=== PATIENT | male | born 1950 | race Caucasian/White ===

== ENCOUNTER 2018-10-25 15:02 | Inpatient (IN) | payer OTHER, MEDICARE, SELFPAY ==
[2018-10-11 09:54] VITALS: BMI 32.5
[2018-10-24] VITALS (16 sets, daily range): BP systolic 134–188; BP diastolic 72–100; PULSE 48–81; RESP 10–20; TEMP 36.1–36.9; O2SAT 97–100; BMI 32.5
--- NOTE | 2018-10-24 06:30 | DI.RAD.S_ITS ---
PROCEDURE: XR KNEE LT 1TO2V INDICATIONS: TOTAL LEFT KNEE TECHNIQUE: 2 view(s) of the knee acquired. COMPARISON: [facility] [place], MR, VISIONAIRE LT KNEE, 09/28/2018, 10:33. [facility] [place], MR, MR KNEE RIGHT WITHOUT CONTRAST, 05/22/2018, 15:00. [facility] [place], CR, XR KNEE ARTHRITIC SERIES RT, 04/19/2018, 14:30. FINDINGS: Bones: Patient is status post knee joint arthroplasty. Hardware components are in expected positions. Visualized bony structures are intact. Soft tissues: Overlying postoperative changes are noted. IMPRESSION: Arthroplasty changes as above. Dictated by: Monalisa Rodriguez M.D. on 10/24/2018 at 12:09 Approved by: Monalisa Rodriguez M.D. on 10/24/2018 at 12:10
[2018-10-24] MEDS: ACETAMINOPHEN 325 MG TABLET 975 MG PO ×3 (08:47→20:32)
[2018-10-24] MEDS: CELECOXIB 200 MG CAPSULE PO (08:48)
[2018-10-24] MEDS: PREGABALIN 75 MG CAPSULE PO (08:48)
[2018-10-24] MEDS: LACTATED RINGERS 1,000 ML 42 ML IV ×2 (08:49→11:00)
--- NOTE | 2018-10-24 09:14 | PM.PREOP ---
Pre-operative Note Interval Note Pre-op Check: Yes History & Physical Reviewed by Physician and Yes Exam Performed Changes: No
--- NOTE | 2018-10-24 09:17 | P.OP_ITS ---
Operative Date/Time/Diagnoses Date of procedure: 10/24/18 Time of procedure: 11:33 Pre-op diagnosis: Left knee osteoarthritis Post-op diagnosis: same Procedure & Clinicians Procedure: Left total knee arthroplasty Same procedure as scheduled: Yes Indications: The patient presents today for total knee arthroplasty after failure of conservative treatment. The nature of the procedure including the risks and benefits, alternatives, postoperative course and expected outcome were discussed and all questions answered. Consent was obtained. Operative site confirmed and marked. Surgeon: Walter Humphreys Salvage Determiner: [place] Frederick Anesthesia Type: Spinal and Local Operative Notes Findings: Severe osteoarthritis with varus alignment. Closure Type: primary Specimen(s): none sent Applied: implant(s) Estimated Blood Loss (mL): 75 Blood products transfused: none Tourniquet time (min): 25 Procedure in detail: The patient was taken to the operative suite and placed under spinal anesthesia. The patient was given prophylactic antibiotics prior to surgery. The patient was also given tranexamic acid, 1 g, just prior to surgery for postoperative hemostasis. The lateral knee was prepped and the joint injected with 20 mL of 1% Lidocaine with epinephrine. The knee was then prepped and draped in usual sterile fashion. The leg was exsanguinated with an Esmarch dressing and the tourniquet raised to 300 torr. A 15 cm anterior incision was made. Next a medial trivector arthrotomy was made. The extensor mechanism was marked to ensure accurate repair. Initial exposing dissection was carried out medially and laterally. The knee was then extended and the patellar thickness was measured and a cut made removing approximately 9 mm of bone with a goal of restoring normal patellar thickness. The patella was then sized and drilled. Some excess lateral bone was excised and the patellofemoral ligament released. The tourniquet was then released. The knee was then flexed and the [employer] Visionaire femoral guide was placed. The anterior pins were placed and the distal rotation holes drilled. The distal cutting guide was placed and the templated distal femoral cut was made. The templating cutting block was then placed and the anterior, posterior and chamfer cuts made. The [employer] Visionaire tibial guide was placed and the alignment checked along the axis of the proximal tibial with a emma. The proximal tibial cut was then made with an oscillating saw. All meniscus and bony debris was then removed. Flexion extension gaps were checked. No specific balancing was required other than routine exposure and removal of osteophytes. The soft tissues were then injected with a combination of 20 mL of half percent Marcaine with epinephrine and 20 mL of Exparel. The trial components were then placed. The knee went into full extension and flexion beyond 120?. There was excellent medial- lateral balance throughout motion. Patellar tracking was excellent. The trial components were removed and size is confirmed for the final implants. The knee was then exsanguinated with an Esmarch dressing and the tourniquet reapplied for cementing. The knee was cleansed with Pulsavac irrigation and dried. The final components were cemented in with high viscosity vacuum mixed bone cement with antibiotics. The knee was held in extension and the patellar clamp until the cement had adequately cured. The knee was then irrigated with dilute Betadine solution. The extensor mechanism was closed with 5 interrupted #1 Vicryl sutures in 90 degrees of flexion. The joint was then injected with a combination of 1 g of tranexamic acid and 20 mL of quarter percent Marcaine with epinephrine. The subcutaneous tissue was closed with 2-0 Vicryl. The skin was closed with jennifer and surgical adhesive. An Aquacell dressing and Van wrap were then applied. Complications: none Condition: stable Disposition: PACU Plan for aftercare: Ramirez
[2018-10-24] MEDS: CEFAZOLIN 2 GM/100 ML FROZ.PIGGY IV ×2 (09:55→17:48)
--- NOTE | 2018-10-24 10:27 | SUR.OPER ---
Supine on padded OR bed. Pillow under head, arms secured on padded armboards <90 degree abduction. Safety belt across torso. Non-operative leg secured with tape over blanket over lower leg. Operative leg secured in DeMayo/Preston positioner. Foam padded brace at thigh of operative leg.
[2018-10-24] MEDS: BUPIVACAINE 0.5% W/ EPI (PF) 20 ML, BUPIVACAINE LIPOSOME 266 MG, SODIUM CHLORIDE 0.9% 8... INJ (10:36)
[2018-10-24] MEDS: BUPIVACAINE 0.5% W/ EPI (PF) 10 ML, TRANEXAMIC ACID 1,000 MG, SODIUM CHLORIDE 0.9% 20 ML INJ (10:37)
[2018-10-24] MEDS: LIDOCAINE 1% W/EPI INJ 20 ML INJ (10:38)
[2018-10-24] MEDS: TRANEXAMIC ACID 1,000 MG VIAL 1000 MG INJ (10:38)
--- NOTE | 2018-10-24 12:02 | SUR.PHASEI ---
Report called to Rhea Mcdaniel
--- NOTE | 2018-10-24 12:21 | SUR.PHASEI ---
Pt transferred to the floor. Report to Rhea Mcwilliams. VS stable. IV saline locked. Drsg cdi. Spinal level t 10. Belongings bag, green bag, black rolling bag, cane and two hearing aids/case in room.
[2018-10-24] MEDS: LACTATED RINGERS 1,000 ML 125 ML IV ×2 (12:45→20:32)
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
[2018-10-24] MEDS: ONDANSETRON 4 MG/2 ML INJ IV (14:08)
--- NOTE | 2018-10-24 14:20 | PC.NURSE ---
Pt c/o abdominal pain which Pt believes is being caused by bladder pressure. Pt incontinent twice but states he had abdominal pain and bladder pressure post op right knee in February. Pt up with P.T. to stand at the bedside and attempt to urinate. He was again incontinent prior to standing up. Pt became nauseated and had a small amount of greenish emesis. Pt was given Zofran and stated his nausea improved after vomitting. Pt now resting in bed with spouse at the bedside.
[2018-10-24] MEDS: OXYCODONE IR 5 MG TABLET PO ×3 (15:47→22:27)
[2018-10-24] MEDS: HYDROMORPHONE 0.5 MG INJ IV ×2 (16:34→17:56)
--- NOTE | 2018-10-24 17:41 | PC.NURSE ---
Student nurse note 10/24/18 Patient post-op total knee. Currently experiencing elevated pain, reporting 7/10 intensity. Applied fresh ice on both sides of knee as well as an ice pack under knee. Patient was also medicated with Dilaudid with primary nurse. No complaints of nausea. Patient c/o itching and states that it is due to hormone medication treatment, gave [employer] lotion to apply and seems to be helping. Patient's bed in low/locked position and call light within reach.
[2018-10-24] MEDS: ASPIRIN EC 81 MG TABLET PO (20:32)
[2018-10-24] MEDS: ATORVASTATIN 10 MG TABLET PO (20:33)
[2018-10-24] MEDS: TEMAZEPAM 15 MG CAPSULE PO (20:37)
[2018-10-25] VITALS (7 sets, daily range): BP systolic 140–179; BP diastolic 84–113; PULSE 74–108; RESP 16–20; TEMP 36.4–37.3; O2SAT 92–100
[2018-10-25] MEDS: HYDROMORPHONE 0.5 MG INJ IV (00:29)
[2018-10-25] MEDS: CEFAZOLIN 2 GM/100 ML FROZ.PIGGY IV (01:01)
[2018-10-25] MEDS: IBUPROFEN 600 MG TABLET PO (02:59)
[2018-10-25] MEDS: OXYCODONE IR 5 MG TABLET PO ×2 (02:59→06:31)
[2018-10-25 05:54] LABS: Hematocrit 33.6 % (41-53); Hemoglobin 11.7 g/dL (13.5-17.5)
[2018-10-25] MEDS: PANTOPRAZOLE 20 MG TABLET PO (06:31)
[2018-10-25] MEDS: OXYCODONE IR 10 MG TABLET PO ×4 (08:40→18:16)
[2018-10-25] MEDS: ACETAMINOPHEN 325 MG TABLET 975 MG PO ×3 (08:41→21:02)
[2018-10-25] MEDS: DOCUSATE 100 MG CAPSULE PO (08:41)
[2018-10-25] MEDS: ASPIRIN EC 81 MG TABLET PO ×2 (08:41→21:03)
--- NOTE | 2018-10-25 09:10 | CM.DANOTE ---
DCP: Case received, EMR reviewed and met with patient. Introduced self and role. DCP template completed with information currently available. Patient is a 67 year old male who admitted to hospital to the care of the hospitalist team. PCP: Dr. Bell. Payer: confirmed: [facility]. Patient came to hospital for procedure, Left Total Knee Arthroplasty. Met with patient in room, alert and oriented, having some pain. Stated that he had his right knee done in February. Patient lives in [place] with his spouse. Patient does have a walker at home, and has been independent as well, does drive. P: DCP to follow, should be working with physical therapy team when able. Plan is for discharge home with outpatient physical therapy. Ondina Banks RN/Park Worker
--- NOTE | 2018-10-25 10:08 | PM.PNPO.1 ---
Subjective Date Patient Seen: 10/25/18 Time Patient Seen: 10:08 Interval history: Hospital day 2, postop day 1 following left total knee arthroplasty by Dr. Humphreys. Patient has been getting oxycodone 5 mg which is not controlling his pain well. Limited activity. He did have trouble voiding during the night and had in-and out catheter. Lab today notes H&H 11.7/33.6. Patient is concerned about bowel movements as he had had constipation from previous surgery. He currently has no cuts a ordered. Exam Vital Signs (past 8 hours): - 10/25/18 03:49 10/25/18 08:00 10/25/18 08:50 Temperature 98.3 F 98.6 F Pulse Rate 74 82 89 Respiratory Rate 16 16 Blood Pressure 179/96 H 141/113 H 161/93 H Pulse Oximetry 100 97 97 Oxygen Delivery Method Room Air Oxygen Flow Rate 0 Narrative Exam Narrative: Alert, oriented in no acute distress resting in bed. Legs. Van wrap and Aquacel dressing to left knee is dry without drainage or inflammation. No calf pain or swelling. Pulses symmetrical. He does have some weakness with firing his quad. Objective Labs Result Diagrams: 10/25/18 05:38 Labs: Laboratory Results - last 24 hr 10/25/18 05:38 Hgb 11.7 L Hct 33.6 L Assessment & Plan Post-op Postoperative Procedures Operation Date: 10/24/18 10:00 Actual Procedures Side Surgeon p Total Knee Arthroplasty Left Walter Humphreys MD Planned: Patient will work with physical therapy today. Will increase oxycodone 10 mg q.3h. Will add senna for bowel movement. Anticipate discharge home tomorrow if he is stable. He has physical therapy scheduled at [facility] in [place]. Quality VTE Deep Vein Thrombosis/Pulmonary Embolism Present on Admission: No
--- NOTE | 2018-10-25 10:40 | PT.IPTN ---
Current Diagnoses Unilateral primary osteoarthritis, left knee (10/24/18) Surgery Performed Operation Date: 10/24/18 10:00 Actual Procedures p Total Knee Arthroplasty(Left) - Walter Humphreys MD Physical Therapy Treatment Note M2 PT-IP Current Condition Start: 10/24/18 15:30 Freq: NEEDED Status: Active Protocol: Document 10/24/18 13:42 (Rec: 10/24/18 16:05 [id number]) Physical Therapy Current Condition Current Condition Evaluation Date 10/24/18 Treatment Diagnosis L TKA; difficulty walking Onset Date 10/24/18 Weight Bearing Status Weight Bearing Status Weight Bear as Tolerated M3 PT-IP Subjective Start: 10/24/18 15:30 Freq: NEEDED Status: Active Protocol: Document 10/25/18 10:40 GGD (Rec: 10/25/18 12:08 GGD [id number]) Subjective Physical Therapy Visit Type Type Treatment Note Visit Start Time 10:05 Visit Stop Time 10:40 Total Visit Minutes 35 Number of FACULTY SUPPORT COORDINATOR Visits 1 Physical Therapy Visit Comments Patient Comments Pt states he will try to get up. Therapy Pain Assessment Pain When Pain Assessed At Rest Pain Present Pain Present Pain Reported Location RIGHT KNEE Intensity 7 Scale Used Numeric (1 - 10) Pain Behaviors Calling Out Crying Holding Area Wincing M4 PT-IP Mobility and Gait Start: 10/24/18 15:30 Freq: NEEDED Status: Active Protocol: Document 10/25/18 10:40 GGD (Rec: 10/25/18 12:08 GGD [id number]) PT-Bed Mobility Assessment Rolling Type of Rolling Log Rolling Roll to Left Level of Assist Minimal Assistance 1 Person Assistance Supine to Sit Supine to Sit Minimal Assistance 1 Person Assistance Bedrails Sit to Supine Sit to Supine Minimal Assistance 1 Person Assistance Bedrails Scooting Scooting to Edge of Bed Standby Assistance Scooting Up and Down in Bed Standby Assistance PT-Transfer Assessment Comments Mobility Comments Pt refuse out of bed mobility due to pain levels. M5 PT-IP Objective Assessments Start: 10/24/18 15:30 Freq: NEEDED Status: Active Protocol: Document 10/24/18 13:42 (Rec: 10/24/18 16:05 [id number]) Orientation Orientation/Cognition Level of Alertness Alert Orientation Name Age Birthday Month Date Year Day of Week Place Situation Language Function Ability No Deficits Noted Safety Awareness Decreased Safety Awareness Gross Range of Motion Lower Extremity ROM Assessment Left Impaired Impairments L Knee flexion 80 deg Strength Lower Extremity Strength Assessment Left Impaired Hip 4 Knee 3+ Ankle 5 Comments Strength Comments RLE WNL Sensation Assessment Sensation Light Touch Impaired Comments Sensation Comments Light touch intact distal to knee. Diminished above the knee. M6 PT-IP Treatment Start: 10/24/18 15:30 Freq: NEEDED Status: Active Protocol: Document 10/25/18 10:40 GGD (Rec: 10/25/18 12:08 GGD [id number]) Physical Therapy Treatment Exercises Exercises Ankle Pumps Quad Sets Heel Slides Seated Knee Flexion/Extension Education Education Provided Safety M7 PT-IP Assessment and Plan Start: 10/24/18 15:30 Freq: NEEDED Status: Active Protocol: Document 10/25/18 10:40 GGD (Rec: 10/25/18 12:08 GGD [id number]) PT Summary Assessment and Plan Summary Assessment Summary Pt activity tolerance limit by pain. He had increase in pain with all mobility. He need min a and mod cues for bed mobility. He refused trial of standing or gait due to c/o pain. Treatment Plan Other Recommendations and Next Treatment Progress ambulation and stair Focus climbing as appropriate. Recommendations To Nursing Amount of Assist Needed 2 Person Assist Discharge Recommendations PT Discharge Recommendations Home with 24/7 Assist SNF Rehab Outpatient PT
[2018-10-25] MEDS: SENNOSIDES 8.6 MG TABLET PO ×2 (13:20→21:03)
--- NOTE | 2018-10-25 14:15 | PT.IPTN ---
Current Diagnoses Unilateral primary osteoarthritis, left knee (10/24/18) Surgery Performed Operation Date: 10/24/18 10:00 Actual Procedures p Total Knee Arthroplasty(Left) - Walter Humphreys MD Physical Therapy Treatment Note M2 PT-IP Current Condition Start: 10/24/18 15:30 Freq: NEEDED Status: Active Protocol: Document 10/24/18 13:42 (Rec: 10/24/18 16:05 [id number]) Physical Therapy Current Condition Current Condition Evaluation Date 10/24/18 Treatment Diagnosis L TKA; difficulty walking Onset Date 10/24/18 Weight Bearing Status Weight Bearing Status Weight Bear as Tolerated M3 PT-IP Subjective Start: 10/24/18 15:30 Freq: NEEDED Status: Active Protocol: Document 10/25/18 14:15 GGD (Rec: 10/25/18 15:54 GGD [id number]) Subjective Physical Therapy Visit Type Type Treatment Note Visit Start Time 13:45 Visit Stop Time 14:15 Total Visit Minutes 30 Number of FABRIC WORKER Visits 2 Physical Therapy Visit Comments Patient Comments Pt states he willing to work with PT. Therapy Pain Assessment Pain When Pain Assessed At Rest Pain Present Pain Present Pain Reported Location RIGHT KNEE Intensity 4 Scale Used Numeric (1 - 10) Pain Behaviors Guarding Wincing M4 PT-IP Mobility and Gait Start: 10/24/18 15:30 Freq: NEEDED Status: Active Protocol: Document 10/25/18 14:15 GGD (Rec: 10/25/18 15:54 GGD [id number]) PT-Bed Mobility Assessment Rolling Type of Rolling Log Rolling Roll to Left Level of Assist Minimal Assistance 1 Person Assistance Supine to Sit Supine to Sit Minimal Assistance 1 Person Assistance Bedrails Sit to Supine Sit to Supine Minimal Assistance 1 Person Assistance Bedrails Scooting Scooting to Edge of Bed Standby Assistance PT-Transfer Assessment Sit to and From Stand Sit to and from Stand Minimal Assistance Use of Upper Extremities Equipment Transfer Assistive Device Gait Belt Front Wheeled Walker Orthotic/Prosthetic Devices or Brace: No Transfers Transfer Destination Bed Transfer Ability Level of Assist Minimal Assistance Comments Mobility Comments Pt stood from high bed. Gait Assessment Gait Gait Assistance Required: Contact Guard Assist Distance (Feet) 4 Able to Maintain Weight Bearing Status Yes During Gait Assistive Devices Assistive Device Front Wheeled Walker Orthotic/Prosthetic Devices or Brace: No Gait Deviations General Gait Pattern Antalgic Decreased Stride Length Decreased Feet Clearance Step-to Gait Factors Limiting Gait Function Factors Limiting Gait Function Decreased Activity Tolerance Limited Range of Motion Pain Poor Balance M5 PT-IP Objective Assessments Start: 10/24/18 15:30 Freq: NEEDED Status: Active Protocol: Document 10/24/18 13:42 (Rec: 10/24/18 16:05 [id number]) Orientation Orientation/Cognition Level of Alertness Alert Orientation Name Age Birthday Month Date Year Day of Week Place Situation Language Function Ability No Deficits Noted Safety Awareness Decreased Safety Awareness Gross Range of Motion Lower Extremity ROM Assessment Left Impaired Impairments L Knee flexion 80 deg Strength Lower Extremity Strength Assessment Left Impaired Hip 4 Knee 3+ Ankle 5 Comments Strength Comments RLE WNL Sensation Assessment Sensation Light Touch Impaired Comments Sensation Comments Light touch intact distal to knee. Diminished above the knee. M6 PT-IP Treatment Start: 10/24/18 15:30 Freq: NEEDED Status: Active Protocol: Document 10/25/18 14:15 GGD (Rec: 10/25/18 15:54 GGD [id number]) Physical Therapy Treatment Exercises Exercises Ankle Pumps Quad Sets Heel Slides Seated Knee Flexion/Extension M7 PT-IP Assessment and Plan Start: 10/24/18 15:30 Freq: NEEDED Status: Active Protocol: Document 10/25/18 14:15 GGD (Rec: 10/25/18 15:54 GGD [id number]) PT Summary Assessment and Plan Summary Assessment Summary Pt improved knee ROM with heel slides with the use of gait belt. He was able to stand from high bed. He did have increase in pain with all mobility. He was able to take a few small steps and was very unsteady. Frequency of Treatment Frequency Of Treatment Twice a Day Treatment Plan Other Recommendations and Next Treatment Progress ambulation and stair Focus climbing as appropriate. Recommendations To Nursing Amount of Assist Needed 2 Person Assist Discharge Recommendations PT Discharge Recommendations Home with 19/06 Assist SNF Rehab Outpatient PT
[2018-10-25] MEDS: hydrOXYzine pamoate 25 MG CAPSULE PO (19:51)
[2018-10-25] MEDS: TEMAZEPAM 15 MG CAPSULE PO (21:03)
[2018-10-25] MEDS: ATORVASTATIN 10 MG TABLET PO (21:03)
[2018-10-26 01:25] VITALS: TEMP 37.3
[2018-10-26] MEDS: OXYCODONE IR 10 MG TABLET PO ×5 (01:25→22:24)
[2018-10-26 06:00] VITALS: BP 166/59; PULSE 100; RESP 18; TEMP 37.6; O2SAT 98
[2018-10-26] MEDS: PANTOPRAZOLE 20 MG TABLET PO (06:06)
[2018-10-26 08:00] VITALS: BP 144/86; PULSE 103; RESP 20; TEMP 37.2; O2SAT 96
--- NOTE | 2018-10-26 09:25 | PT.IPTN ---
Current Diagnoses Unilateral primary osteoarthritis, left knee (10/24/18) Surgery Performed Operation Date: 10/24/18 10:00 Actual Procedures p Total Knee Arthroplasty(Left) - Walter Humphreys MD Physical Therapy Treatment Note M2 PT-IP Current Condition Start: 10/24/18 15:30 Freq: NEEDED Status: Active Protocol: Document 10/24/18 13:42 (Rec: 10/24/18 16:05 [id number]) Physical Therapy Current Condition Current Condition Evaluation Date 10/24/18 Treatment Diagnosis L TKA; difficulty walking Onset Date 10/24/18 Weight Bearing Status Weight Bearing Status Weight Bear as Tolerated M3 PT-IP Subjective Start: 10/24/18 15:30 Freq: NEEDED Status: Active Protocol: Document 10/26/18 09:25 GGD (Rec: 10/26/18 12:30 GGD [id number]) Subjective Physical Therapy Visit Type Type Treatment Note Visit Start Time 09:00 Visit Stop Time 09:25 Total Visit Minutes 25 Number of HEALTH SERVICES DIRECTOR Visits 3 Physical Therapy Visit Comments Patient Comments Pt states he hopes to go home soon. Therapy Pain Assessment Pain When Pain Assessed At Rest Pain Present Pain Present Pain Reported Location RIGHT KNEE Intensity 5 Scale Used Numeric (1 - 10) M4 PT-IP Mobility and Gait Start: 10/24/18 15:30 Freq: NEEDED Status: Active Protocol: Document 10/26/18 09:25 GGD (Rec: 10/26/18 12:30 GGD [id number]) PT-Bed Mobility Assessment Rolling Type of Rolling Log Rolling Roll to Left Level of Assist Standby Assistance Supine to Sit Supine to Sit Contact Guard Assistance 1 Person Assistance Bedrails Scooting Scooting to Edge of Bed Standby Assistance PT-Transfer Assessment Sit to and From Stand Sit to and from Stand Contact Guard Assistance Use of Upper Extremities Equipment Transfer Assistive Device Gait Belt Front Wheeled Walker Orthotic/Prosthetic Devices or Brace: No Transfers Transfer Destination Chair Transfer Ability Level of Assist Minimal Assistance Gait Assessment Gait Gait Assistance Required: Contact Guard Assist Distance (Feet) 15 Able to Maintain Weight Bearing Status Yes During Gait Assistive Devices Assistive Device Gait Belt Front Wheeled Walker Orthotic/Prosthetic Devices or Brace: No Gait Deviations General Gait Pattern Antalgic Decreased Stride Length Decreased Feet Clearance Step-to Gait Factors Limiting Gait Function Factors Limiting Gait Function Decreased Activity Tolerance Limited Range of Motion Pain Poor Balance Comments Gait Comments Pt need mod cues for gait pattern with FWW. M5 PT-IP Objective Assessments Start: 10/24/18 15:30 Freq: NEEDED Status: Active Protocol: Document 10/24/18 13:42 (Rec: 10/24/18 16:05 [id number]) Orientation Orientation/Cognition Level of Alertness Alert Orientation Name Age Birthday Month Date Year Day of Week Place Situation Language Function Ability No Deficits Noted Safety Awareness Decreased Safety Awareness Gross Range of Motion Lower Extremity ROM Assessment Left Impaired Impairments L Knee flexion 80 deg Strength Lower Extremity Strength Assessment Left Impaired Hip 4 Knee 3+ Ankle 5 Comments Strength Comments RLE WNL Sensation Assessment Sensation Light Touch Impaired Comments Sensation Comments Light touch intact distal to knee. Diminished above the knee. M6 PT-IP Treatment Start: 10/24/18 15:30 Freq: NEEDED Status: Active Protocol: Document 10/26/18 09:25 GGD (Rec: 10/26/18 12:30 GGD [id number]) Physical Therapy Treatment Exercises Exercises Ankle Pumps Quad Sets Heel Slides Seated Knee Flexion/Extension Education Education Provided Safety M7 PT-IP Assessment and Plan Start: 10/24/18 15:30 Freq: NEEDED Status: Active Protocol: Document 10/26/18 09:25 GGD (Rec: 10/26/18 12:30 GGD [id number]) PT Summary Assessment and Plan Summary Assessment Summary Pt improving with mobility and need decrease assistance. He did need cues for all activity . He was able to progress gait distance and improved tolerance to left LE weight bearing. He does need to clear stair mobility before safe D/ C home. Frequency of Treatment Frequency Of Treatment Twice a Day Treatment Plan Other Recommendations and Next Treatment Progress ambulation and stair Focus climbing as appropriate. Recommendations To Nursing Amount of Assist Needed 1 Person Assist Discharge Recommendations PT Discharge Recommendations Home with 19/06 Assist Outpatient PT
[2018-10-26] MEDS: ACETAMINOPHEN 325 MG TABLET 975 MG PO ×3 (09:45→22:24)
[2018-10-26] MEDS: ASPIRIN EC 81 MG TABLET PO ×2 (09:45→22:23)
[2018-10-26] MEDS: SENNOSIDES 8.6 MG TABLET PO ×2 (09:45→22:24)
[2018-10-26] MEDS: hydrOXYzine pamoate 25 MG CAPSULE PO ×2 (11:25→22:23)
--- NOTE | 2018-10-26 14:50 | PT.IPTN ---
Current Diagnoses Unilateral primary osteoarthritis, left knee (10/25/18) Presence of unspecified artificial knee joint (10/25/18) Surgery Performed Operation Date: 10/24/18 10:00 Actual Procedures p Total Knee Arthroplasty(Left) - Walter Humphreys MD Physical Therapy Treatment Note M2 PT-IP Current Condition Start: 10/24/18 15:30 Freq: NEEDED Status: Active Protocol: Document 10/24/18 13:42 (Rec: 10/24/18 16:05 [id number]) Physical Therapy Current Condition Current Condition Evaluation Date 10/24/18 Treatment Diagnosis L TKA; difficulty walking Onset Date 10/24/18 Weight Bearing Status Weight Bearing Status Weight Bear as Tolerated M3 PT-IP Subjective Start: 10/24/18 15:30 Freq: NEEDED Status: Active Protocol: Document 10/26/18 09:25 GGD (Rec: 10/26/18 12:30 GGD [id number]) Subjective Physical Therapy Visit Type Type Treatment Note Visit Start Time 09:00 Visit Stop Time 09:25 Total Visit Minutes 25 Number of CHEMICAL PLANT MANAGER Visits 3 Physical Therapy Visit Comments Patient Comments Pt states he hopes to go home soon. Therapy Pain Assessment Pain When Pain Assessed At Rest Pain Present Pain Present Pain Reported Location RIGHT KNEE Intensity 5 Scale Used Numeric (1 - 10) M4 PT-IP Mobility and Gait Start: 10/24/18 15:30 Freq: NEEDED Status: Active Protocol: Document 10/26/18 09:25 GGD (Rec: 10/26/18 12:30 GGD [id number]) PT-Bed Mobility Assessment Rolling Type of Rolling Log Rolling Roll to Left Level of Assist Standby Assistance Supine to Sit Supine to Sit Contact Guard Assistance 1 Person Assistance Bedrails Scooting Scooting to Edge of Bed Standby Assistance PT-Transfer Assessment Sit to and From Stand Sit to and from Stand Contact Guard Assistance Use of Upper Extremities Equipment Transfer Assistive Device Gait Belt Front Wheeled Walker Orthotic/Prosthetic Devices or Brace: No Transfers Transfer Destination Chair Transfer Ability Level of Assist Minimal Assistance Gait Assessment Gait Gait Assistance Required: Contact Guard Assist Distance (Feet) 15 Able to Maintain Weight Bearing Status Yes During Gait Assistive Devices Assistive Device Gait Belt Front Wheeled Walker Orthotic/Prosthetic Devices or Brace: No Gait Deviations General Gait Pattern Antalgic Decreased Stride Length Decreased Feet Clearance Step-to Gait Factors Limiting Gait Function Factors Limiting Gait Function Decreased Activity Tolerance Limited Range of Motion Pain Poor Balance Comments Gait Comments Pt need mod cues for gait pattern with FWW. M5 PT-IP Objective Assessments Start: 10/24/18 15:30 Freq: NEEDED Status: Active Protocol: Document 10/24/18 13:42 (Rec: 10/24/18 16:05 [id number]) Orientation Orientation/Cognition Level of Alertness Alert Orientation Name Age Birthday Month Date Year Day of Week Place Situation Language Function Ability No Deficits Noted Safety Awareness Decreased Safety Awareness Gross Range of Motion Lower Extremity ROM Assessment Left Impaired Impairments L Knee flexion 80 deg Strength Lower Extremity Strength Assessment Left Impaired Hip 4 Knee 3+ Ankle 5 Comments Strength Comments RLE WNL Sensation Assessment Sensation Light Touch Impaired Comments Sensation Comments Light touch intact distal to knee. Diminished above the knee. M6 PT-IP Treatment Start: 10/24/18 15:30 Freq: NEEDED Status: Active Protocol: Document 10/26/18 09:25 GGD (Rec: 10/26/18 12:30 GGD [id number]) Physical Therapy Treatment Exercises Exercises Ankle Pumps Quad Sets Heel Slides Seated Knee Flexion/Extension Education Education Provided Safety M7 PT-IP Assessment and Plan Start: 10/24/18 15:30 Freq: NEEDED Status: Active Protocol: Document 10/26/18 09:25 GGD (Rec: 10/26/18 12:30 GGD [id number]) PT Summary Assessment and Plan Summary Assessment Summary Pt improving with mobility and need decrease assistance. He did need cues for all activity . He was able to progress gait distance and improved tolerance to left LE weight bearing. He does need to clear stair mobility before safe D/ C home. Frequency of Treatment Frequency Of Treatment Twice a Day Treatment Plan Other Recommendations and Next Treatment Progress ambulation and stair Focus climbing as appropriate. Recommendations To Nursing Amount of Assist Needed 1 Person Assist Discharge Recommendations PT Discharge Recommendations Home with 19/06 Assist Outpatient PT
--- NOTE | 2018-10-26 15:14 | PM.PNPO.1 ---
Subjective Date Patient Seen: 10/26/18 Time Patient Seen: 07:14 Interval history: POD #2 status post left total knee arthroplasty with Dr. Humphreys. Patient had difficulty urinating yesterday. He was able to void in the middle of the night and this morning. Patient's pain is well controlled. Patient has not been in the [facility] with physical therapy yet. Exam Vital Signs (past 8 hours): - 10/26/18 08:00 Temperature 99.0 F Pulse Rate 103 H Respiratory Rate 20 Blood Pressure 144/86 H Pulse Oximetry 96 Oxygen Delivery Method Room Air Oxygen Flow Rate 0 Narrative Exam Narrative: Patient lying in bed in no acute distress. He is alert and oriented x3. Dressing on knee is CDI. Van wrap in place. Calves are soft, compressible, nontender bilaterally. Sensation intact to light touch throughout bilateral lower extremities. Pulses are symmetrical. Objective Labs Result Diagrams: 10/25/18 05:38 Assessment & Plan Post-op (1) S/P total knee arthroplasty: Current Visit: Yes Status: Acute Postoperative Procedures Operation Date: 10/24/18 10:00 Actual Procedures Side Surgeon p Total Knee Arthroplasty Left Walter Humphreys MD continue physical therapy. Continue current pain management. Will continue to monitor voiding. Patient could possibly discharge home today if ambulating safely, pain adequately controlled, and voiding without assistance. Quality VTE Deep Vein Thrombosis/Pulmonary Embolism Present on Admission: No
--- NOTE | 2018-10-26 15:29 | PC.NURSE ---
Pts bp up to 100s/103 earlier, he was in pain. Given oxycodone and bp down to 150s/80s. Report just given to sterling JOHNSTON and he will be medicated for pain shortly.
--- NOTE | 2018-10-26 15:33 | CM.DPC ---
Addendum entered by Whit Muniz LPN 10/27/18 14:35: Pt did much better today. Was up with PT. Ortho PA Santino ok'd him for home and he and his left as planned. Original Note: DCP: continued: case received and a d/c to home order this morning was noted. Discussed in Team Rounds. Pt was seeing pt. Rn coordinator noted pt having issues with pain and noted pt does have the comorbidity of cancer. Checked in now. Pt and spouse asleep in the darkened room. VICKIE Jackson confirms he will not be leaving today. Orthopedic team is following. P: remains: home with 's supportive assist when stable for same. (here for elective LTKA). Of note: UR VICKIE Watson confirms admission status changed to INPT: 12/25/17
[2018-10-26] MEDS: MAGNESIUM HYDROXIDE 30 ML UDC PO (15:43)
[2018-10-26 15:50] VITALS: BP 150/81; PULSE 93; RESP 18; TEMP 37.1; O2SAT 93
[2018-10-26] MEDS: OXYCODONE IR 5 MG TABLET PO (19:11)
[2018-10-26] MEDS: TEMAZEPAM 15 MG CAPSULE PO (22:24)
[2018-10-26] MEDS: ATORVASTATIN 10 MG TABLET PO (22:24)
[2018-10-26] MEDS: DOCUSATE 100 MG CAPSULE PO (22:24)
[2018-10-26 22:31] VITALS: BP 115/78; PULSE 92; RESP 18; TEMP 36.8; O2SAT 93
[2018-10-27 00:05] VITALS: BP 144/70; PULSE 83; RESP 19; TEMP 36.8; O2SAT 96
[2018-10-27] MEDS: IBUPROFEN 600 MG TABLET PO ×2 (00:09→08:57)
[2018-10-27 05:50] VITALS: BP 150/87; PULSE 79; RESP 19; TEMP 36.6; O2SAT 100
[2018-10-27] MEDS: PANTOPRAZOLE 20 MG TABLET PO (07:07)
[2018-10-27] MEDS: OXYCODONE IR 5 MG TABLET PO (07:10)
[2018-10-27 08:00] VITALS: BP 144/59; PULSE 96; RESP 18; TEMP 36.4; O2SAT 95
[2018-10-27] MEDS: ACETAMINOPHEN 325 MG TABLET 975 MG PO (08:58)
[2018-10-27] MEDS: SENNOSIDES 8.6 MG TABLET PO (08:59)
[2018-10-27] MEDS: ASPIRIN EC 81 MG TABLET PO (08:59)
--- NOTE | 2018-10-27 10:24 | PM.DS.1 ---
History of Present Illness Date Patient Seen: 10/27/18 Time Patient Seen: 10:24 Chief complaint: [id number] LEFT TOTAL KNEE ARTHROPLASTY *OPB* Narrative: Hospital day 4, postop day 3 following left total knee arthroplasty by Dr. Humphreys. Patient remained stable postoperatively. Has had some pain control issue to but has been improving. Has been having some difficulty with ambulation but gradually improving. He did have some voiding problems off and on with history of prostate cancer and bladder radiation. Patient is desiring to go home at this time. Discharge Providers Date of admission: 10/25/18 15:02 Primary care physician: Trell Bell MD Consults: 10/24/18 12:29 Consult to Discharge Planning Routine Comment: Consult to Physical Therapy Evaluate & Treat Comment: Physician Instructions: postop TKA protocol Consult to Respiratory Therapy Evaluate & Treat Comment: Physician Instructions: Evaluate and treat Discharge provider: Gerardo Bravo PA-C Discharge Date: 10/27/18 Summary Discharge Diagnosis: Status post left total knee arthroplasty. Hospital Course: Patient brought to hospital on 10/24/2018 for above-noted surgery. Remained stable postoperatively. Progressed slowly with ambulation and physical therapy. Ready for discharge to home on postop day 3. Status at Discharge Cognitive/behavioral status at discharge: Alert, responsive in no acute distress. Functional status at discharge: uses cane/walker Overall status at discharge: patient is progressing back to baseline Time Spent with Patient Less than 30 minutes Exam Vital Signs (past 8 hours): - 10/27/18 05:50 10/27/18 08:00 Temperature 97.8 F 97.6 F Pulse Rate 79 96 H Respiratory Rate 19 18 Blood Pressure 150/87 H 144/59 H Pulse Oximetry 100 95 Oxygen Delivery Method Room Air Oxygen Flow Rate 0 Narrative Exam Narrative: Left leg. Aquacel dressing in place without drainage or inflammation. Mild swelling of the knee and lower leg. Calf is soft and nontender. Pulses symmetrical. Patient able fire his quad well. Objective Labs Result Diagrams: 10/25/18 05:38 Discharge Plan Discharge Plan Patient Disposition: Home Discharge comment: DC home this afternoon after PT. He is a [facility] patient had has pain medications at home. Discharge Med Rec/Prescriptions Prescriptions: Continue atorvastatin [Lipitor] 10 MG tablet 10 mg PO BEDTIME Qty: 0 RF: 0 temazepam 15 MG capsule 15 mg PO BEDTIME Qty: 0 RF: 0 omeprazole 20 MG capsule,delayed release(DR/EC) 20 mg PO QDAY Qty: 0 RF: 0 naproxen sodium 220 MG capsule 2 tab PO QAM Qty: 0 RF: 0 venlafaxine [Effexor XR] 75 MG capsule,extended release 24hr 1 tab PO BID Qty: 0 RF: 0 goserelin [Zoladex] 10.8 MG implant 10.8 mg SQ SEE INSTRUCTIONS Qty: 0 RF: 0 calcium citrate-vitamin D3 [Citracal + D Maximum] 1,500 MG/250 IU tablet 1 tab PO BID Qty: 0 RF: 0 hydrocodone-acetaminophen 5-325 mg Tablet 1 - 2 tab PO BEDTIME RF: 0 Changed aspirin 81 mg Tablet,Delayed Release (Dr/Ec) 81 mg PO BID Qty: 0 RF: 0 Follow up/Referrals: Trell Bell MD [Primary Care Provider] - (follow up with your primary care provider ) Walter Humphreys MD [Physician] - (Please follow up in 5-7 days ) Provider Discharge Instructions Activity: Ambulate as tolerated. Range of motion of left knee as much as possible. Cold/Heat Therapy: Ice to left knee as needed. Skin/Wound/Dressing Care Report to your healthcare provider any signs of infection, such as:: chills, fever, night sweats, increased pain, unusual drainage and unusual redness Dressing: Keep Aquacel dressing in place until postop visit. Visit Report/Discharge Packet Instructions: DI for Knee Replacement Stand Alone Forms: Surgery Discharge Discharge Data Primary Care Provider: Trell Bell Attending Provider: Walter Humphreys Admit Date/Time: 10/25/18 15:02 Quality VTE Deep Vein Thrombosis/Pulmonary Embolism Present on Admission: No
--- NOTE | 2018-10-27 11:00 | PT.IPTN ---
Current Diagnoses Unilateral primary osteoarthritis, left knee (10/25/18) Presence of unspecified artificial knee joint (10/25/18) Surgery Performed Operation Date: 10/24/18 10:00 Actual Procedures p Total Knee Arthroplasty(Left) - Walter Humphreys MD Physical Therapy Treatment Note M2 PT-IP Current Condition Start: 10/24/18 15:30 Freq: NEEDED Status: Active Protocol: Document 10/24/18 13:42 (Rec: 10/24/18 16:05 [id number]) Physical Therapy Current Condition Current Condition Evaluation Date 10/24/18 Treatment Diagnosis L TKA; difficulty walking Onset Date 10/24/18 Weight Bearing Status Weight Bearing Status Weight Bear as Tolerated M3 PT-IP Subjective Start: 10/24/18 15:30 Freq: NEEDED Status: Active Protocol: Document 10/27/18 11:00 GGD (Rec: 10/27/18 12:07 GGD [id number]) Subjective Physical Therapy Visit Type Type Treatment Note Visit Start Time 10:30 Visit Stop Time 11:00 Total Visit Minutes 30 Number of MARKETING AREA MANAGER Visits 5 Physical Therapy Visit Comments Patient Comments Pt states he is feeling better . Therapy Pain Assessment Pain When Pain Assessed At Rest Pain Present Pain Present Pain Reported Location RIGHT KNEE Intensity 4 Scale Used Numeric (1 - 10) M4 PT-IP Mobility and Gait Start: 10/24/18 15:30 Freq: NEEDED Status: Active Protocol: Document 10/27/18 11:00 GGD (Rec: 10/27/18 12:07 GGD [id number]) PT-Bed Mobility Assessment Rolling Type of Rolling Log Rolling Roll to Left Level of Assist Standby Assistance Supine to Sit Supine to Sit Standby Assistance 1 Person Assistance Bedrails Scooting Scooting to Edge of Bed Standby Assistance PT-Transfer Assessment Sit to and From Stand Sit to and from Stand Contact Guard Assistance Use of Upper Extremities Equipment Transfer Assistive Device Gait Belt Front Wheeled Walker Orthotic/Prosthetic Devices or Brace: No Transfers Transfer Destination Wheelchair Transfer Ability Level of Assist Minimal Assistance Gait Assessment Gait Gait Assistance Required: Contact Guard Assist Distance (Feet) 40 Able to Maintain Weight Bearing Status Yes During Gait Assistive Devices Assistive Device Gait Belt Front Wheeled Walker Orthotic/Prosthetic Devices or Brace: No Gait Deviations General Gait Pattern Antalgic Decreased Stride Length Decreased Feet Clearance Step-to Gait Factors Limiting Gait Function Factors Limiting Gait Function Decreased Activity Tolerance Limited Range of Motion Pain Poor Balance Stair Climbing Assessment Evaluation Level of Assist On Stairs Standby Assistance Contact Guard Assistance Devices Stair Climbing Assistive Devices Straight Cane Right Railing Technique/Endurance Stair Climbing Direction Ascend and Descend Stair Climbing Technique Step to Step Number of Steps Climbed 3 Query Text: Stair Climbing Set # Repetitions (reps) 1 M5 PT-IP Objective Assessments Start: 10/24/18 15:30 Freq: NEEDED Status: Active Protocol: Document 10/24/18 13:42 (Rec: 10/24/18 16:05 [id number]) Orientation Orientation/Cognition Level of Alertness Alert Orientation Name Age Birthday Month Date Year Day of Week Place Situation Language Function Ability No Deficits Noted Safety Awareness Decreased Safety Awareness Gross Range of Motion Lower Extremity ROM Assessment Left Impaired Impairments L Knee flexion 80 deg Strength Lower Extremity Strength Assessment Left Impaired Hip 4 Knee 3+ Ankle 5 Comments Strength Comments RLE WNL Sensation Assessment Sensation Light Touch Impaired Comments Sensation Comments Light touch intact distal to knee. Diminished above the knee. M6 PT-IP Treatment Start: 10/24/18 15:30 Freq: NEEDED Status: Active Protocol: Document 10/27/18 11:00 GGD (Rec: 10/27/18 12:07 GGD [id number]) Physical Therapy Treatment Exercises Exercises Ankle Pumps Quad Sets Heel Slides Straight Leg Raises Seated Knee Flexion/Extension Education Education Provided Safety M7 PT-IP Assessment and Plan Start: 10/24/18 15:30 Freq: NEEDED Status: Active Protocol: Document 10/27/18 11:00 GGD (Rec: 10/27/18 12:07 GGD [id number]) PT Summary Assessment and Plan Summary Assessment Summary Pt improving with mobility and gait. He was able to progress his gait distance and had improved weight bearing. He was safer and increase stability with stair mobility. He needed less cueing. He is safe for home D/C when medically stable. Goals Bed Mobility Goal Standby Assistance Transfer Goal Standby Assistance Front Wheeled Walker Gait Goal Standby Assistance Front Wheel Walker Gait Distance 150 Other Goals STG: Pt will up/down 3 steps B rails with minAx1. LTG: Pt will up/down 3 steps B rails with SBA. Days to Meet Goals 5 Frequency of Treatment Frequency Of Treatment Twice a Day Treatment Plan Other Recommendations and Next Treatment Progress ambulation and stair Focus climbing as appropriate. Recommendations To Nursing Amount of Assist Needed 1 Person Assist Discharge Recommendations PT Discharge Recommendations Home with 24/ Assist Outpatient PT
[2018-10-27] MEDS: OXYCODONE IR 10 MG TABLET PO (11:15)
== END 2018-10-27 13:00 | disposition home or self-care (01) | DRG 470 ==
LOC: OR 10-26 13:20
PROVIDERS: Admitting Provider Orthopaedic Surgery; PCP Internal Medicine; Visit Provider Orthopaedic Surgery
PROC: 0SRD0JZ Replacement of Left Knee Joint with Synthetic Substitute, Open Approach (ICD-10-PCS; CPT 27447; principal; 2018-10-24 10:00)
DX: M17.12 Unilateral primary osteoarthritis, left knee (principal); G47.30 Sleep apnea, unspecified; Z87.891 Personal history of nicotine dependence; Z96.651 Presence of right artificial knee joint; R39.198 Other difficulties with micturition; Z85.46 Personal history of malignant neoplasm of prostate
CPT/HCPCS: 73560; 85014; 85018; 97110; 97116; 97162; 97530; C1776; C9290; J0690; J1170; J2405; J2704

== ENCOUNTER 2019-01-23 12:14 | Inpatient (IN) | payer MEDICARE, SELFPAY ==
[2018-10-24 12:51] VITALS: BMI 32.5
[2019-01-14 10:37] VITALS: BMI 33.0
[2019-01-23] VITALS (16 sets, daily range): BP systolic 129–169; BP diastolic 68–84; PULSE 59–72; RESP 14–18; TEMP 36.3–37.2; O2SAT 91–100; BMI 33.0
--- NOTE | 2019-01-23 | DI.RAD.S_ITS ---
PROCEDURE: XR KNEE RT 1TO2V INDICATIONS: POST OP TECHNIQUE: 2 view(s) of the knee acquired. COMPARISON: [facility], CR, XR KNEE LT 1TO2V, 10/24/2018, 11:47. FINDINGS: Bones: Patient is status post knee joint arthroplasty. Hardware components are in expected positions. Visualized bony structures are intact. Soft tissues: Overlying postoperative changes are noted. IMPRESSION: Right knee arthroplasty hardware. Dictated by: Felipe Humphries M.D. on 01/23/2019 at 17:23 Approved by: Felipe Humphries M.D. on 01/23/2019 at 17:23
[2019-01-23] MEDS: LACTATED RINGERS 1,000 ML 42 ML IV ×2 (12:48→17:02)
[2019-01-23] MEDS: PREGABALIN 75 MG CAPSULE PO (13:28)
[2019-01-23] MEDS: ACETAMINOPHEN 325 MG TABLET 975 MG PO ×2 (13:29→21:44)
[2019-01-23] MEDS: CELECOXIB 200 MG CAPSULE PO (13:29)
--- NOTE | 2019-01-23 15:21 | PM.PREOP ---
Pre-operative Note Interval Note History & Physical reviewed/Exam performed by Physician: Yes Changes to H&P: No
--- NOTE | 2019-01-23 15:22 | PM.OP.1 ---
Operative Date/Time/Diagnoses Date of procedure: 01/23/19 Time of procedure: 17:28 Pre-op diagnosis: Progressive osteoarthritis after medial compartment arthroplasty right knee Post-op diagnosis: same Procedure & Clinicians Procedure: Revision of medial compartment arthroplasty to total knee arthroplasty right knee Same procedure as scheduled: Yes Indications: The patient presents today for revision to total knee arthroplasty after failure of conservative treatment for progressive osteoarthritis. The nature of the procedure including the risks and benefits, alternatives, postoperative course and expected outcome were discussed and all questions answered. Consent was obtained. Operative site confirmed and marked. Surgeon: Walter Humphreys Hydrometer Calibrator: Bismark Frederick Anesthesia Type: General, Spinal and Local Operative Notes Findings: There was severe osteoarthritis of the patellofemoral and lateral compartment. No obvious loosening of the medial compartment arthroplasty. A standard total knee with just slightly thicker poly was utilized as there was no significant bone loss. Closure Type: primary Specimen(s): other (Previous medial compartment arthroplasty.) Prosthetic devices, grafts, tissues, transplants, or devices: [facility] BCS: 8 femoral component, 8 tibial component, 11 mm BCS polyethylene tray and 35 x 9 mm round patella Applied: catheter and implant(s) Estimated Blood Loss (mL): 100 Blood products transfused: none Tourniquet time (min): 35 Procedure in detail: The patient was taken to the operative suite and placed under spinal and general anesthesia. The patient was given prophylactic antibiotics prior to surgery. The patient was also given tranexamic acid, 1 g, just prior to surgery for postoperative hemostasis. The lateral knee was prepped and the joint injected with 20 mL of 1% Lidocaine with epinephrine. The knee was then prepped and draped in usual sterile fashion. The leg was exsanguinated with an Esmarch dressing and the tourniquet raised to 250 torr. A 15 cm anterior incision was made using the previous incision. Next a medial trivector arthrotomy was made. The extensor mechanism was marked to ensure accurate repair. Initial exposing dissection was carried out medially and laterally. The knee was then extended and the patellar thickness was measured and a cut made removing approximately 9 mm of bone. The patella was then sized and drilled. Some excess lateral bone was excised and the patellofemoral ligament released. The knee was then flexed and the intramedullary femoral guide emma placed. The distal femoral cut was made in 6 ? of valgus at the + 0 position. The previous medial femoral component was easily removed with osteotomes. No evidence of loosening. No significant bone loss. The femoral size was measured and the appropriate cutting block was then placed and the anterior, posterior and chamfer cuts made. The tibial component was then removed with osteotome was. Again there was no significant bone loss. No evidence of loosening. The extra medullary tibial alignment emma was then placed along the anatomic axis of the tibia approximating the normal slope. The guide was set to remove about 1-2 mm from the previous medial resection. This corresponded to about 12 mm from the lateral side. The proximal tibial cut was then made with an oscillating saw. All meniscus and bony debris was then removed. Flexion extension gaps were checked. No specific balancing was required other than routine removal of osteophytes. The soft tissues were then injected with a combination of 20 mL of half percent Marcaine with epinephrine and 20 mL of Exparel. The trial components were then placed. The knee went into full extension and flexion beyond 120?. There was excellent medial- lateral balance throughout motion. Patellar tracking was excellent. The trial components were removed and the knee was cleansed with Pulsavac irrigation and dried. The final components were cemented in with high viscosity vacuum mixed bone cement with antibiotics. The knee was held in extension and the patellar clamp until the cement had fully cured. The knee was irrigated and inspected for any further debris. The knee was then irrigated with dilute Betadine solution. The extensor mechanism was closed with 5 interrupted #1 Vicryl sutures in 90 degrees of flexion. The joint was then injected with a combination of 1 g of tranexamic acid and 20 mL of quarter percent Marcaine with epinephrine. The subcutaneous tissue was closed with 2-0 Vicryl. The skin was closed with jennifer and surgical adhesive. An Aquacell dressing and Van wrap were then applied. The patient tolerated the procedure well and was returned to recovery room in good condition. Complications: none Condition: stable Disposition: PACU Plan for aftercare: [facility] protocol for total knee arthroplasty.
[2019-01-23] MEDS: CEFAZOLIN 2 GM/100 ML FROZ.PIGGY IV ×2 (15:30→23:54)
[2019-01-23] MEDS: LIDOCAINE 1% W/EPI INJ 20 ML INJ (16:11)
[2019-01-23] MEDS: POVIDONE-IODINE 15 ML, SODIUM CHLORIDE 0.9% 250 ML TOP (16:12)
[2019-01-23] MEDS: BUPIVACAINE 0.5% W/ EPI (PF) 20 ML, BUPIVACAINE LIPOSOME 266 MG, SODIUM CHLORIDE 0.9% 8... INJ (16:13)
[2019-01-23] MEDS: BUPIVACAINE 0.5% W/ EPI (PF) 10 ML, TRANEXAMIC ACID 1,000 MG, SODIUM CHLORIDE 0.9% 20 ML INJ (16:14)
[2019-01-23] MEDS: LORazepam 2 MG/ML SYRINGE 1 MG IV (17:50)
[2019-01-23] MEDS: HYDROMORPHONE 2 MG INJ 1 MG IV ×2 (17:58→18:00)
[2019-01-23] MEDS: LACTATED RINGERS 1,000 ML 125 ML IV (18:46)
[2019-01-23] MEDS: OXYCODONE IR 5 MG TABLET PO (19:10)
[2019-01-23] MEDS: ASPIRIN EC 81 MG TABLET PO (21:45)
[2019-01-23] MEDS: VENLAFAXINE ER 75 MG CAP PO (21:45)
[2019-01-23] MEDS: ATORVASTATIN 10 MG TABLET PO (21:45)
[2019-01-23] MEDS: TEMAZEPAM 15 MG CAPSULE PO (21:51)
[2019-01-23] MEDS: HYDROMORPHONE 0.5 MG INJ IV (21:52)
--- NOTE | 2019-01-23 23:15 | PC.NURSE ---
Pt is post op. A&OX3. 95%RA. cont pulse ox. denied nausea, pt tolerating PO fluids. R.knee dressing cdi. pp++. hillman patent. IVF infusing. pt rated his pain 7/10, medicated with oxycodone and dilaudid IV.
[2019-01-24] VITALS (8 sets, daily range): BP systolic 134–180; BP diastolic 75–90; PULSE 63–74; RESP 16–20; TEMP 36.2–37.1; O2SAT 95–100
[2019-01-24] MEDS: HYDROMORPHONE 2 MG TABLET PO ×7 (00:49→23:17)
[2019-01-24] MEDS: HYDROMORPHONE 0.5 MG INJ IV ×2 (01:25→04:42)
[2019-01-24 05:27] LABS: Hematocrit 32.4 % (41-53); Hemoglobin 11.2 g/dL (13.5-17.5)
--- NOTE | 2019-01-24 06:49 | PC.NURSE ---
Pt is A and O x 4, VSS. He rates his pain 6/10. Denies N/V/D, LS clear, S1, S2. Pt prefers 0.5 mg IVP dilaudid, po meds tried first. UO is qs clear yellow. +BT. Pt is requesting bowel meds, last BM yesterday before surgery.
--- NOTE | 2019-01-24 07:10 | PM.PNPO.1 ---
Subjective Date Patient Seen: 01/24/19 Interval history: Patient seen bedside s/p R. TKA POD #1. Patient is doing well, his pain is relatively controlled with medication, hillman in place. Denies nausea/vomiting, chest pain, or shortness of breath. Exam Vital Signs (past 8 hours): - 01/24/19 00:00 01/24/19 05:00 Temperature 98.1 F 97.2 F L Pulse Rate 69 64 Respiratory Rate 20 16 Blood Pressure 134/75 146/81 H Pulse Oximetry 96 100 Oxygen Delivery Method Room Air,CPAP Oxygen Flow Rate 2 Narrative Exam Narrative: WDWN NAD A&Ox3. Dressing is CDI, minimal erythema and generalized swelling around the joint. Calf is soft and compressible. Full ROM of foot and ankle. Objective Labs Result Diagrams: 01/24/19 04:41 Labs: Laboratory Results - last 24 hr 01/24/19 04:41 Hgb 11.2 L Hct 32.4 L Assessment & Plan Post-op Postoperative Procedures Operation Date: 01/23/19 14:30 Actual Procedures Side Surgeon p Revision of partial knee to total knee replacement Right Walter Humphreys MD 1. POD #1 s/p above procedure-doing well, PT, pain control. Possible d/c home tomorrow if ambulating well and urinating. D/c hillman.
[2019-01-24] MEDS: PANTOPRAZOLE 20 MG TABLET PO (07:38)
[2019-01-24] MEDS: CEFAZOLIN 2 GM/100 ML FROZ.PIGGY IV (07:40)
[2019-01-24] MEDS: VENLAFAXINE ER 75 MG CAP PO ×2 (08:35→20:15)
[2019-01-24] MEDS: ASPIRIN EC 81 MG TABLET PO ×2 (08:35→20:15)
[2019-01-24] MEDS: DOCUSATE 100 MG CAPSULE PO ×2 (08:35→20:15)
[2019-01-24] MEDS: ACETAMINOPHEN 325 MG TABLET 975 MG PO ×3 (08:35→20:15)
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
--- NOTE | 2019-01-24 12:47 | PC.NURSE ---
day shift note pt a/o x3, resting comfortably in bed and chair throughout day. medicated PRN for pain with PO diluadid with effect. ice pack on L knee in place. no c/o n/v/d. hillman d/c at 1000, pt has not urinated since. will continue to monitor status. saline locked. worked with PT today, able to ambulate with 1PA with FWW.
--- NOTE | 2019-01-24 15:16 | PT.IPTN ---
Current Diagnoses Unilateral primary osteoarthritis, left knee (01/23/19) Presence of unspecified artificial knee joint (01/23/19) Surgery Performed Operation Date: 01/23/19 14:30 Actual Procedures p Revision of partial knee to total knee replacement(Right) - Walter Humphreys MD Physical Therapy Treatment Note M2 PT-IP Current Condition Start: 01/24/19 11:53 Freq: NEEDED Status: Active Protocol: Document 01/24/19 09:50 HH (Rec: 01/24/19 12:16 [email or web address]) Physical Therapy Current Condition Current Condition Evaluation Date 01/24/19 Treatment Diagnosis Revision of medial compartment arthroplasty (R knee), impaired gait Onset Date 01/23/19 Weight Bearing Status Weight Bearing Status Weight Bear as Tolerated M3 PT-IP Subjective Start: 01/24/19 11:53 Freq: NEEDED Status: Active Protocol: Document 01/24/19 14:52 SA (Rec: 01/24/19 15:16 SA [email or web address]) Subjective Physical Therapy Visit Type Type Treatment Note Visit Start Time 14:05 Visit Stop Time 14:35 Total Visit Minutes 30 Notes Pt just had pain meds, agreeable to PT. Number of QUENCHER OPERATOR Visits 1 Physical Therapy Visit Comments Patient Comments Feeling better this afternoon, knee pain is about a 5/10. Patient Goals To return home with his and participate outpatient PT Therapy Pain Assessment Pain When Pain Assessed During Mobility Pain Present Pain Present Pain Reported Location RIGHT KNEE Intensity 5 Scale Used Numeric (1 - 10) Description Acute Pain Management Techniques Apply Cold Re-positioning Timing of Activity with Medications M4 PT-IP Mobility and Gait Start: 01/24/19 11:53 Freq: NEEDED Status: Active Protocol: Document 01/24/19 14:52 SA (Rec: 01/24/19 15:16 SA [email or web address]) PT-Bed Mobility Assessment Rolling Type of Rolling Roll to Left Level of Assist Standby Assistance Supine to Sit Supine to Sit Standby Assistance Bedrails Sit to Supine Sit to Supine Standby Assistance Scooting Scooting to Edge of Bed Standby Assistance Scooting Up and Down in Bed Standby Assistance PT-Transfer Assessment Sit to and From Stand Sit to and from Stand Standby Assistance Use of Upper Extremities Equipment Transfer Assistive Device Gait Belt Front Wheeled Walker Orthotic/Prosthetic Devices or Brace: No Transfers Transfer Destination Bed Transfer Technique Stand Step Pivot Transfer Ability Level of Assist Contact Guard Assistance Comments Mobility Comments BP 155/77 at start of treatment. PT SBA-CGA with all mobilities, able to clear LLE over EOB during sit to supine with use of gait belt as leg casino cage cashier. CGA with stand pivot txs and FWW, no c/o dizziness. Gait Assessment Gait Gait Assistance Required: Contact Guard Assist Distance (Feet) 140 Able to Maintain Weight Bearing Status Yes During Gait Assistive Devices Assistive Device Gait Belt Front Wheeled Walker Orthotic/Prosthetic Devices or Brace: No Gait Deviations General Gait Pattern Antalgic Decreased Stride Length Decreased Feet Clearance Factors Limiting Gait Function Factors Limiting Gait Function Decreased Activity Tolerance Decreased Strength Limited Range of Motion Pain Comments Gait Comments Gait training in room and cruz with fWW and CGA for 140 feet with step through gait pattern and cues for upright posture and decreasing WBing through UEs. Steady with safe use of FWW, no LOB. Stair Climbing Assessment Comments Stair Climbing Comments Pt wants to attempt tomorrow. PT-Balance Assessment Sitting Balance and Reactions Static Sitting Balance Ability Normal Dynamic Sitting Balance Ability Normal M5 PT-IP Objective Assessments Start: 01/24/19 11:53 Freq: NEEDED Status: Active Protocol: Document 01/24/19 09:50 HH (Rec: 01/24/19 12:16 [email or web address]) Orientation Orientation/Cognition Level of Alertness Alert Orientation Name Age Birthday Month Date Year Day of Week Place Situation Language Function Ability No Deficits Noted Safety Awareness Understands Safety Issues Memory Description No Deficits Noted Gross Range of Motion Upper Extremity ROM Assessment Within Functional Limits Lower Extremity ROM Assessment Right Impaired Impairments R knee AROM 5 degrees to 85 degrees Strength Upper Extremity Strength Assessment Within Functional Limits Lower Extremity Strength Assessment Right Impaired Knee 3+/5 grossly Coordination Assessment Gross Coordination Gross Coordination WNL Sensation Assessment Sensation Gross Sensation Right LE Impaired Light Touch Impaired Proprioception (Position) Impaired Sensation Description Pain M6 PT-IP Treatment Start: 01/24/19 11:53 Freq: NEEDED Status: Active Protocol: Document 01/24/19 14:52 SA (Rec: 01/24/19 15:16 SA [email or web address]) Physical Therapy Treatment Exercises Exercises Ankle Pumps Gluteal Sets Quad Sets Heel Slides Straight Leg Raises Short Arc Quads Education Education Provided Post-Op Packet Safety M7 PT-IP Assessment and Plan Start: 01/24/19 11:53 Freq: NEEDED Status: Active Protocol: Document 01/24/19 14:52 (Rec: 01/24/19 15:16 [email or web address]) PT Summary Assessment and Plan Potential Rehabilitation Potential Excellent Status of Condition at Evaluation Stable Summary Impairments Pain ROM Strength Balance Bed Mobility Transfers Gait Activity Tolerance Assessment Summary Pt with improving gait and mobility this afternoon, feels this knee surgery has been less painful than R knee and that he is progressing faster. Pt has 2 stairs to enter home and is willing to try stairs tomorrow. Frequency of Treatment Frequency Of Treatment Twice a Day Treatment Plan Physical Therapy Treatment Plan Bed Mobility Training Transfer Training Gait Training Therapeutic Exercise Balance Retraining Post Op Education Discharge Planning Hot or Cold Pack Recommendations To Nursing Amount of Assist Needed 1 Person Assist Discharge Recommendations PT Discharge Recommendations Home with Assistance Outpatient PT [id number]
[2019-01-24] MEDS: SODIUM CHLORIDE 0.9% FLUSH 10 ML IV (20:15)
[2019-01-24] MEDS: ATORVASTATIN 10 MG TABLET PO (20:15)
[2019-01-24] MEDS: TEMAZEPAM 15 MG CAPSULE PO (20:17)
--- NOTE | 2019-01-24 22:20 | PC.NURSE ---
Evening shift note: Patient alert and oriented and able to make needs known. pt reports that he feels good and that he is recovering more quickly than last time (L knee replacement in the past few months). Pt hopes to go home tomorrow. Pt. is voiding regularly and tolerating food and fluid well, denies any nausea. Face appears a little reddened, discussed with patient the possibility of antibiotics causing the redness, pt denied any discomfort. Patient reported pain level of 6, administered medication as per JAN. Reinforced call light use. Call light in reach.
[2019-01-25 00:29] VITALS: BP 136/76; PULSE 70; RESP 18; TEMP 37.1; O2SAT 98
[2019-01-25] MEDS: OXYCODONE IR 5 MG TABLET PO ×3 (02:40→08:51)
[2019-01-25 04:10] VITALS: BP 166/84; PULSE 70; RESP 18; TEMP 36.6; O2SAT 99
[2019-01-25] MEDS: PANTOPRAZOLE 20 MG TABLET PO (06:04)
[2019-01-25 07:00] VITALS: BP 190/82; PULSE 84; RESP 20; TEMP 37; O2SAT 99
[2019-01-25] MEDS: ACETAMINOPHEN 325 MG TABLET 975 MG PO (08:04)
--- NOTE | 2019-01-25 08:15 | PC.NURSE ---
Addendum entered by Tee Moss R.N. 01/25/19 10:24: PUJA De Los Santos notified of bp this am, and pain 6/10. order added for vistaril. patient states he has pre-filled order for vistaril at home. bp improved after ambulating stairs and clearing physical therapy. patient eager to dc home. arrived promptly and patient left by wc with all belongings and paperwork. Patient states he already has an appt with his pcp and will discuss his HTN at f/u appt. Original Note: Patient rates pain 5/10. Appears uncomfortable. Cheeks flushed. BP elevated 190/82, HR stable 84. Reviewed previous VS, looks like he has been hypertensive. Noted that he is not on anti-hypertensives at home. Does have hx of anxiety and appears to have pain. Will review with PA this am.
[2019-01-25] MEDS: SODIUM CHLORIDE 0.9% FLUSH 10 ML IV (08:51)
[2019-01-25] MEDS: ASPIRIN EC 81 MG TABLET PO (08:52)
[2019-01-25] MEDS: VENLAFAXINE ER 75 MG CAP PO (08:52)
[2019-01-25] MEDS: DOCUSATE 100 MG CAPSULE PO (08:52)
--- NOTE | 2019-01-25 09:16 | PM.DS.1 ---
History of Present Illness Date Patient Seen: 01/25/19 Chief complaint: Revision of partial knee [id number] Narrative: Patient seen bedside status post right revision of unicompartmental knee arthroplasty to total knee arthroplasty on 01/23/[address] Humphreys. Patient is doing well, he is in a little bit amount of pain but he states that he is able to tolerate with oxycodone. He was unable to tolerate hydromorphone. He worked with physical therapy yesterday but still has not done stairs. He would like to go home today. Discharge Providers Date of admission: 01/23/19 12:14 Discharge Date: 01/25/19 Primary care physician: Trell Bell MD Consults: 01/23/19 18:32 Consult to Discharge Planning Routine Comment: Consult to Physical Therapy Evaluate & Treat Comment: Physician Instructions: postop TKA protocol Consult to Respiratory Therapy Evaluate & Treat Comment: Physician Instructions: Evaluate and treat Discharge provider: Tania De Los Santos PA-C Summary Discharge Diagnosis: 1. Right knee osteoarthritis 2. History of right partial knee replacement Hospital Course: Patient was admitted to the hospital status post right revision of unicompartmental knee arthroplasty to total knee arthroplasty on 01/23/[address] Humphreys. Patient tolerated the procedure well with no major complications. Patient was placed on a standard joint replacement pathway and protocol. Patient is seen by Physical therapy and recommended for discharge home. Patient was stable and ready for discharge on 01/25/2019. Status at Discharge Cognitive/behavioral status at discharge: Alert oriented x3 Functional status at discharge: uses cane/walker Overall status at discharge: patient is progressing back to baseline Time Spent with Patient Less than 30 minutes Exam Vital Signs (past 8 hours): - 01/25/19 04:10 01/25/19 07:00 Temperature 97.8 F 98.6 F Pulse Rate 70 84 Respiratory Rate 18 20 Blood Pressure 166/84 H 190/82 H Pulse Oximetry 99 99 Fraction of Inspired Oxygen 21 Oxygen Delivery Method Room Air Oxygen Flow Rate 0 Narrative Exam Narrative: Well-developed well-nourished no acute distress, alert and oriented x3. Dressing on right knee is clean dry and intact. Minimal erythema and generalized swelling around the surgical site. Calf is soft and compressible. Patient is neurovascularly intact in this extremity. Full range of motion of the foot and ankle Objective Labs Result Diagrams: 01/24/19 04:41 Discharge Plan Discharge Plan Patient Disposition: Home Discharge comment: d/c after cleared by PT Discharge Med Rec/Prescriptions Prescriptions: New docusate sodium 100 mg Capsule 100 mg PO BID Qty: 0 RF: 0 oxycodone 5 mg Tablet 5 mg PO Q4H PRN (Reason: Pain, Moderate (4-6)) Qty: 0 RF: 0 Continued atorvastatin [Lipitor] 10 MG tablet 10 mg PO BEDTIME Qty: 0 RF: 0 temazepam 15 MG capsule 15 mg PO BEDTIME Qty: 0 RF: 0 omeprazole 20 MG capsule,delayed release(DR/EC) 20 mg PO QDAY Qty: 0 RF: 0 naproxen sodium 220 MG capsule 2 tab PO QAM Qty: 0 RF: 0 venlafaxine [Effexor XR] 75 MG capsule,extended release 24hr 1 tab PO BID Qty: 0 RF: 0 Zoladex 10.8 MG implant 10.8 mg SQ SEE INSTRUCTIONS Qty: 0 RF: 0 calcium citrate-vitamin D3 [Citracal + D Maximum] 1,500 MG/250 IU tablet 2 tab PO BID Qty: 0 RF: 0 aspirin 81 mg Tablet,Delayed Release (Dr/Ec) 81 mg PO BID Qty: 0 RF: 0 Follow up/Referrals: Walter Humphreys MD [Physician] - (Follow up with the office at your previously scheduled post-op appointment in 5-7 days.) Provider Discharge Instructions Diet: Diet as Tolerated Activity: Weightbearing as tolerated, use walker until cleared by PT Cold/Heat Therapy: Apply ice 20 minutes at a time at least hourly while awake. Skin/Wound/Dressing Care Report to your healthcare provider any signs of infection, such as:: chills, fever, night sweats, increased pain, unusual drainage and unusual redness Dressing: Keep dressing clean, dry, and intact. May shower with it in place but no soaking. Visit Report/Discharge Packet Instructions: DI for Knee Replacement, Oxycodone Stand Alone Forms: Surgery Discharge Discharge Data Primary Care Provider: Trell Bell Attending Provider: Walter Humphreys Admit Date/Time: 01/23/19 12:14 Quality VTE Deep Vein Thrombosis/Pulmonary Embolism Present on Admission: No
--- NOTE | 2019-01-25 09:25 | PT.IPTN ---
Current Diagnoses Unilateral primary osteoarthritis, left knee (01/23/19) Presence of unspecified artificial knee joint (01/23/19) Surgery Performed Operation Date: 01/23/19 14:30 Actual Procedures p Revision of partial knee to total knee replacement(Right) - Walter Humphreys MD Physical Therapy Treatment Note M2 PT-IP Current Condition Start: 01/24/19 11:53 Freq: NEEDED Status: Discharge Protocol: Document 01/24/19 09:50 HH (Rec: 01/24/19 12:16 HH [email or web address]) Physical Therapy Current Condition Current Condition Evaluation Date 01/24/19 Treatment Diagnosis Revision of medial compartment arthroplasty (R knee), impaired gait Onset Date 01/23/19 Weight Bearing Status Weight Bearing Status Weight Bear as Tolerated M3 PT-IP Subjective Start: 01/24/19 11:53 Freq: NEEDED Status: Discharge Protocol: Document 01/25/19 09:25 GGD (Rec: 01/25/19 11:54 GGD [id number]) Subjective Physical Therapy Visit Type Type Treatment Note Visit Start Time 09:00 Visit Stop Time 09:25 Total Visit Minutes 25 Number of BOOK REVIEWER Visits 2 Physical Therapy Visit Comments Patient Comments Pt states he hopes to go home today. Therapy Pain Assessment Pain When Pain Assessed During Mobility Pain Present Pain Present Pain Reported Location RIGHT KNEE Intensity 4 Scale Used Numeric (1 - 10) M4 PT-IP Mobility and Gait Start: 01/24/19 11:53 Freq: NEEDED Status: Discharge Protocol: Document 01/25/19 09:25 GGD (Rec: 01/25/19 11:54 GGD [id number]) PT-Bed Mobility Assessment Supine to Sit Supine to Sit Standby Assistance Scooting Scooting to Edge of Bed Standby Assistance PT-Transfer Assessment Sit to and From Stand Sit to and from Stand Standby Assistance Use of Upper Extremities Equipment Transfer Assistive Device Gait Belt Front Wheeled Walker Orthotic/Prosthetic Devices or Brace: No Transfers Transfer Destination Chair Transfer Ability Level of Assist Contact Guard Assistance Gait Assessment Gait Gait Assistance Required: Contact Guard Assist Distance (Feet) 110 Able to Maintain Weight Bearing Status Yes During Gait Assistive Devices Assistive Device Gait Belt Front Wheeled Walker Orthotic/Prosthetic Devices or Brace: No Gait Deviations General Gait Pattern Antalgic Decreased Stride Length Decreased Feet Clearance Factors Limiting Gait Function Factors Limiting Gait Function Decreased Activity Tolerance Decreased Strength Limited Range of Motion Pain Stair Climbing Assessment Evaluation Level of Assist On Stairs Standby Assistance Devices Stair Climbing Assistive Devices Straight Cane Right Railing Technique/Endurance Stair Climbing Direction Ascend and Descend Stair Climbing Technique Step to Step Number of Steps Climbed 3 Query Text: Stair Climbing Set # Repetitions (reps) 1 Comments Stair Climbing Comments Pt need min cues for gait pattern. M5 PT-IP Objective Assessments Start: 01/24/19 11:53 Freq: NEEDED Status: Discharge Protocol: Document 01/24/19 09:50 HH (Rec: 01/24/19 12:16 [email or web address]) Orientation Orientation/Cognition Level of Alertness Alert Orientation Name Age Birthday Month Date Year Day of Week Place Situation Language Function Ability No Deficits Noted Safety Awareness Understands Safety Issues Memory Description No Deficits Noted Gross Range of Motion Upper Extremity ROM Assessment Within Functional Limits Lower Extremity ROM Assessment Right Impaired Impairments R knee AROM 5 degrees to 85 degrees Strength Upper Extremity Strength Assessment Within Functional Limits Lower Extremity Strength Assessment Right Impaired Knee 3+/5 grossly Coordination Assessment Gross Coordination Gross Coordination WNL Sensation Assessment Sensation Gross Sensation Right LE Impaired Light Touch Impaired Proprioception (Position) Impaired Sensation Description Pain M6 PT-IP Treatment Start: 01/24/19 11:53 Freq: NEEDED Status: Discharge Protocol: Document 01/25/19 09:25 GGD (Rec: 01/25/19 11:54 GGD [id number]) Physical Therapy Treatment Exercises Exercises Ankle Pumps Quad Sets Heel Slides Seated Knee Flexion/Extension M7 PT-IP Assessment and Plan Start: 01/24/19 11:53 Freq: NEEDED Status: Discharge Protocol: Document 01/25/19 09:25 GGD (Rec: 01/25/19 11:54 GGD [id number]) PT Summary Assessment and Plan Summary Assessment Summary Pt progressing with mobility. He was safe and stable with gait and stair mobility. He did have increase in pain, but didn't limit tolerance to mobility. Frequency of Treatment Frequency Of Treatment Twice a Day Treatment Plan Physical Therapy Treatment Plan Bed Mobility Training Transfer Training Gait Training Therapeutic Exercise Balance Retraining Post Op Education Discharge Planning Hot or Cold Pack Recommendations To Nursing Amount of Assist Needed 1 Person Assist Discharge Recommendations PT Discharge Recommendations Home with Assistance Outpatient PT
[2019-01-25 09:30] VITALS: BP 156/71; PULSE 80; RESP 20; TEMP 36.9; O2SAT 99
[2019-01-25] MEDS: hydrOXYzine pamoate 25 MG CAPSULE PO (09:39)
--- NOTE | 2019-01-25 10:42 | CM.IDA ---
Addendum entered by NORBERTO Kothari 01/25/19 10:43: Pt aware and agreeable to DCP, eager to return home. IMM verbal agreement obtained. ASHWINI Original Note: Discharge Planning/Care Management CM Discharge Assessment Start: 01/25/19 10:38 Freq: Status: Discharge Protocol: Document 01/25/19 10:38 [email or web address] (Rec: 01/25/19 10:42 [email or web address] [id number]) Discharge Planning Assessment Assigned Student Union Consultant NORBERTO Uriostegui DPOA/Assigned Designee Name Mile Mckeon, spouse Contact Information [phone] Advance Directives? Yes Advance Directives on File Yes: On file per History Provided By Patient Significant Other Medical Record Prior Living Arrangements House Household Members spouse Type of transporation used prior to Relies on Others admit Independent with ADL's Yes: Mod. Indp. w/use of cane or walker Is patient alert and oriented? Yes Needs Assistance With Meal Prep Home Chores / Shopping Patient/Family Preference OP PT Therapy Barriers to Discharge No Comment Pt DC today, home w/spouse, POD#1 from partial knee revision w/Dr Humphreys. Payer: Medicare/[employer] Pt getting dressed and eager to leave today, home w/spouse and outpt PT. Therapy team agree, pt okay to return home, no barriers. NORBERTO Kothari Discharge Plan Home Transportation Arrangement Spouse
== END 2019-01-25 10:15 | disposition home or self-care (01) | DRG 468 ==
PROVIDERS: Admitting Provider Orthopaedic Surgery; PCP Internal Medicine; Visit Provider Orthopaedic Surgery
PROC: 0SPC0JZ Removal of Synthetic Substitute from Right Knee Joint, Open Approach (ICD-10-PCS; principal; 2019-01-23 14:30)
DX: M17.11 Unilateral primary osteoarthritis, right knee (principal); E78.00 Pure hypercholesterolemia, unspecified; K21.9 Gastro-esophageal reflux disease without esophagitis; F41.9 Anxiety disorder, unspecified; Z87.891 Personal history of nicotine dependence; Z85.46 Personal history of malignant neoplasm of prostate
CPT/HCPCS: 36415; 73560; 85014; 85018; 94760; 94762; 97116; 97161; 97530; C1776; C9290; J0360; J0690; J1100; J1170; J2060; J2250; J2274; J2405; J2704; J3010

== ENCOUNTER → 2021-08-03 09:56 | Outpatient (CLI) | payer MEDICARE, SELFPAY ==
[2021-07-29 11:07] VITALS: BMI 33.0
== END ==
PROVIDERS: PCP Internal Medicine; Referring Provider Urology; Visit Provider Urology
DX: C61 Malignant neoplasm of prostate (principal); R31.0 Gross hematuria; T30.0 Burn of unspecified body region, unspecified degree; D64.9 Anemia, unspecified; F41.9 Anxiety disorder, unspecified
CPT/HCPCS: 36415; 84153; 99215